=== PATIENT | female | born 1990 | race Caucasian/White ===

== ENCOUNTER 2021-10-06 16:40 | Emergency (ER) | payer BC, SELFPAY ==
--- NOTE | 2021-10-06 16:54 | CRLHL7_ITS ---
For Patients: As a result of the Century Cures Act, medical imaging exams and procedure reports are released immediately into your electronic medical record. You may view this report before your referring provider. If you have questions, please contact your health care provider. INDICATION: 9 week miscarriage today. heavy bleeding. assess uterine contents TECHNIQUE: Ultrasound pelvis transabdominal to assess and visualize the uterus and endometrium. Real-time sonographic images with spectral color doppler imaging of the ovaries were obtained. COMPARISON: None. FINDINGS: Uterus: Indeterminate cystic structure in the endometrium, possible residual gestational sac measuring 17.9 mm, corresponding to estimated gestational age of 6 weeks 5 days. Endometrium: Heterogeneous, echogenic debris in the endometrium with minimal vascularity. Right ovary: Unremarkable. Small amount of free fluid adjacent to the right ovary. Left ovary: Not evaluated. Cul-de-sac: Small amount of free pelvic fluid. IMPRESSION: 1. Likely residual gestational sac in the endometrium, with estimated mean gestational sac diameter of 17.9 mm. No pole or yolk sac identified. 2. Echogenic debris with mild vascularity in the endometrium, which may represent blood products and associated gestational sac. 3. No adnexal mass or complex structures identified with minimal degree of free pelvic fluid. Recommend close clinical follow-up and correlation with beta HCG levels. Dictated by Miguel Ángel Doan MD @ 10/06/2021 6:43:24 PM Dictated by: Miguel Ángel Daon MD @ 10/06/2021 18:43:31 (Electronically Signed)
[2021-10-06 16:59] VITALS: BP 118/91; PULSE 93; RESP 18; TEMP 37.2; O2SAT 98; BMI 23.6
--- NOTE | 2021-10-06 17:30 | ED.NURSE ---
Patient up to bathroom to change pad. Saturated pad with copious amount of dark red blood was removed. Patient reports soaking this pad in one hour. Reports intermittent cramping no lightheadedness.
[2021-10-06 18:03] VITALS: BP 96/80; PULSE 77; RESP 14; O2SAT 98
[2021-10-06] MEDS: 0.9 % SODIUM CHLORIDE 1000 ml 1,000 ML IV (18:16)
[2021-10-06 18:17] LABS: Basophils Absolute Auto 0.02 K/uL (0.00-0.30); Basophils Percent Auto 0.2 % (0.0-3.0); Eosinophils Absolute Auto 0.17 K/uL (0.00-0.50); Eosinophils Percent Auto 2.1 % (0.0-7.0); Hematocrit 36.7 % (33.0-51.0); Hemoglobin* 12.5 gm/dL (12.0-16.0); Immature Granulocytes Abs Auto 0.06 K/uL (0.00-0.30); Lymphocytes Percent Auto 18.9 % (20-44); Mean Corpuscular HGB Conc 34 gm/dL (32-36); Mean Corpuscular Hemoglobin 28 pg (26-34); Mean Corpuscular Volume 83 fL (80-100); Monocytes Percent Auto 8.6 % (0.0-11.0); Neutrophils Absolute Auto 5.71 K/uL (1.7-7.0); Neutrophils Percent Auto 69.5 % (42.0-72.0); Platelet Count* 191 K/uL (140-440); Red Blood Count 4.43 m/uL (4.00-5.20); White Blood Count* 8.22 K/uL (4.50-11.00)
[2021-10-06 18:18] LABS: Slide Review Reflex No
--- NOTE | 2021-10-06 18:23 | ED.NURSE ---
Patient had home container with passed vaginal specimen. This was placed in sterile collection cup and brought to lab. Patient does not want sample returned to her.
--- NOTE | 2021-10-06 18:53 | ED_ITS ---
HPI - Female Genitourinary General Chief complaint: Vaginal Bleeding Stated complaint: Miscarriage Time Seen by Provider: 10/06/21 16:52 History of Present Illness HPI Narrative: Patient is 4 para 2 woman who is 9 weeks . She began passing blood and clots earlier today and actually passed what appears to be products of conception home. She comes in the emergency room with brisk vaginal bleeding. She has had no lightheadedness no chest pain no palpitations. Her bleeding stops for the most part during her time in the ER after passing a large clot. Not feeling well. Her hemoglobin is stable at 12.5. Quantitative hCG is pending her blood type is O-positive. Related Data Home Medications Medication Instructions Recorded Confirmed oseltamivir 75 mg capsule mg 10/06/21 Allergies Allergy/AdvReac Type Severity Reaction Status Date / Time No Known Drug Allergies Allergy Verified 10/06/21 16:58 Review of Systems Status of ROS: Reports: 10 or more systems reviewed and unremarkable except as noted in History and below PFSH PFS Social History Smoking Status: Never smoker Do you use any of these nicotine containing products: None Second hand tobacco smoke exposure: No How often do you have a drink containing alcohol: monthly or less How often do you have six or more drinks on one occasion: Never AUDIT-C Alcohol total score: 1 Non-prescribed substance use: denies use Exam Narrative: Exam Narrative: EXAM GENERAL: Patient appears comfortable and well. EYES: No scleral icterus. LYMPH: No supraclavicular or cervical lymphadenopathy. SKIN: Visible skin seen during exam normal or with benign process only. EXT: No dependent lower extremity pedal edema. HEART: Regular rate and rhythm with no murmurs, rubs, or gallops. LUNGS: Clear to auscultation bilaterally with no crackles or wheezes. ABD: Soft, non tender, non distended. PSYCH: Good eye contact, speech is not pressured. Const: Vital Signs, click to edit/add: Vital Signs - 24 hr 10/06/21 16:59 10/06/21 18:03 Temperature 99.0 F Pulse Rate [Left P ulse Oximeter] 93 77 Respiratory Rate 18 14 Blood Pressure [Le ft Upper Arm] 118/91 H 96/80 Pulse Oximetry 98 98 Course Course Hospital Course: Ultrasound of the pelvis transabdominal upon my review shows likely miscarriage in progress. No remaining viable tissue. Hemoglobin 12.5 Quantitative hCG pending. Consultations Consultation #1: I did speak with OBGYN initially and then after the ultrasound was back. They did instruct me that as long as patient is medically stable she can follow-up as an outpatient for repeat quantitative hCG and possible assessment of retained products. If she continues have bleeding or retained products she would recommend a D&C. Vital Signs Vital signs: Initial Vital Signs Temperature 99.0 F 10/06/21 16:59 Temperature Source Temporal Artery Scan 10/06/21 16:59 Pulse Rate 93 10/06/21 16:59 Respiratory Rate 18 10/06/21 16:59 Blood Pressure 118/91 H 10/06/21 16:59 Blood Pressure Mean 100 10/06/21 16:59 Blood Pressure Position Supine 10/06/21 16:59 Pulse Oximetry 98 10/06/21 16:59 Oxygen Delivery Method 10/06/21 16:59 Vital Signs Temperature 99.0 F 10/06/21 16:59 Pulse Rate 93 10/06/21 16:59 Respiratory Rate 18 10/06/21 16:59 Blood Pressure 118/91 H 10/06/21 16:59 Pulse Oximetry 98 10/06/21 16:59 Temperature 99.0 F 10/06/21 16:59 Pulse Rate 77 10/06/21 18:03 Respiratory Rate 14 10/06/21 18:03 Blood Pressure 96/80 10/06/21 18:03 Pulse Oximetry 98 10/06/21 18:03 MDM - Female Genitourinary Lab Data Labs: Lab Results 10/06/21 Range/Units 17:15 WBC 8.22 (4.50-11.00) K/uL RBC 4.43 (4.00-5.20) m/uL Hgb 12.5 (12.0-16.0) gm/dL Hct 36.7 (33.0-51.0) % MCV 83 (80-100) fL MCH 28 (26-34) pg MCHC 34 (32-36) gm/dL RDW Coeff of Yessica 13.0 (11.5-15.5) % Plt Count 191 (140-440) K/uL Neut % (Auto) 69.5 (42.0-72.0) % Lymph % (Auto) 18.9 L (20-44) % [place] % (Auto) 8.6 (0.0-11.0) % Eos % (Auto) 2.1 (0.0-7.0) % Baso % (Auto) 0.2 (0.0-3.0) % Neut # (Auto) 5.71 (1.7-7.0) K/uL Lymph # (Auto) 1.60 (0.90-2.90) K/uL [place] # (Auto) 0.70 (0.00-0.90) K/UL Eos # (Auto) 0.17 (0.00-0.50) K/uL Baso # (Auto) 0.02 (0.00-0.30) K/uL Abs Immat Gran (auto) 0.06 (0.00-0.30) K/uL Discharge Plan Discharge Clinical Impression: Incomplete miscarriage Patient Disposition: Home, Self-Care Condition: Stable Additional Instructions: Continue to monitor bleeding. Return if bleeding becomes more brisk. Follow-up with OBGYN later this week to discuss repeat quantitative hCG and possible D&C. Activity Level: No Restrictions Prescriptions: No Action oseltamivir 75 mg capsule 0RF Follow Up/Referrals: Min Beth MD [Primary Care Provider] - Stand Alone Forms: [employer] Info Instructions
[2021-10-06 19:24] VITALS: BP 98/72
== END 2021-10-06 19:42 | disposition home or self-care (01) ==
PROVIDERS: Emergency Provider Internal Medicine; PCP Family Medicine
DX: O03.4 Incomplete spontaneous abortion without complication (principal)
CPT/HCPCS: 36415; 76856; 84702; 85025; 88305; 99283; 99284; J7030

== ENCOUNTER 2021-10-26 15:57 | Outpatient (CLI) | payer BC, SELFPAY ==
[2021-10-26 21:50] LABS: HCG Quantitative* 20.44 mIU/mL
== END 2021-10-26 15:58 | disposition home or self-care (01) ==
LOC: LKVLAB 15:58
PROVIDERS: PCP Family Medicine; Visit Provider Obstetrics & Gynecology
DX: O03.9 Complete or unspecified spontaneous abortion without complication (principal)
CPT/HCPCS: 36415; 84702

== ENCOUNTER 2021-11-03 12:30 | Emergency (ER) | payer BC, SELFPAY ==
[2021-11-03 12:59] VITALS: BP 107/53; PULSE 80; TEMP 36.9; O2SAT 92; BMI 21.0
[2021-11-03 13:04] VITALS: BP 107/73; PULSE 77; TEMP 36.9; O2SAT 94; BMI 20.8
--- NOTE | 2021-11-03 14:17 | CRLHL7_ITS ---
For Patients: As a result of the Century Cures Act, medical imaging exams and procedure reports are released immediately into your electronic medical record. You may view this report before your referring provider. If you have questions, please contact your health care provider. INDICATION: MISCARRIAGE 10/06/21, HEAVY BLEEDING ? RETAINED PRODUCTS COMPARISON: 10/06/2021, 09/22/2021 TECHNIQUE: Real-time cheung-scale imaging of the pelvis was performed. FINDINGS: Previously noted intrauterine gestational sac is no longer present. Endometrium is thickened and heterogeneous measuring up to 2.3 cm with associated increased vascularity. Bilateral simple ovarian cysts are noted measuring 5.8 x 5.1 x 6.1 cm on the left and 4.8 x 2.7 x 4.0 cm on the right. No pelvic free fluid. IMPRESSION: Thickened, heterogeneous and hypervascular endometrium suggesting retained products of conception. Bilateral simple ovarian cysts. Dictated by Mike Saldaña MD @ 11/03/2021 3:19:31 PM (Electronically Signed)
--- NOTE | 2021-11-03 14:34 | ED_ITS ---
HPI - Female Genitourinary General Chief complaint: Vaginal Bleeding Stated complaint: Passed several clots following miscarriage Time Seen by Provider: 11/03/21 13:06 History of Present Illness HPI Narrative: 31y presents to the ED via POV approximately 1 month after miscarriage. Patient reports she has been following with her primary care and obstetric providers for post-miscarriage cares. Patient's beta hCG was noted to be 95 initially, followed by 20 approximately 1 week prior to presentation today, but she has not had a repeated this week as she has started to improve and only spot. She presented to the emergency department today with request of her obstetrics provider due to recurrence of bleeding with golfball to tennis ball size clots. The patient denies dizziness, shortness of breath, nausea, or vomiting. The patient reports some abdominal cramping persisting. The patient has taken Tylenol prior to arrival with minimal improvement in pain and discomfort. She denies fever, chills, or sweats. See nursing notes for additional details. Related Data Previous Rx's Medication Instructions Recorded medroxyprogesterone 10 mg tablet 10 mg PO DAILY #10 tabs 11/03/21 (Provera) Allergies Allergy/AdvReac Type Severity Reaction Status Date / Time No Known Drug Allergies Allergy Verified 11/03/21 13:10 Review of Systems Const: Denies: fever, chills, fatigue or malaise ENMT: Denies: vertigo Cardio: Denies: chest pain, palpitations or shortness of breath with exertion Resp: Denies: shortness of breath or cough GI: Reports: abdominal pain (cramping); Denies: nausea, vomiting, diarrhea or constipation : Reports: vaginal bleeding; Denies: painful urination or urinary frequency Neuro: Denies: numbness in extremities, weakness in extremities, lack of coordination, dizziness or vertigo Endo: Denies: fatigue [facility] Medical History (Updated 11/03/21 @ 15:55 by Jane Atkinson DO) Spontaneous miscarriage (10/05/21) Social History Smoking Status: Never smoker Do you use any of these nicotine containing products: None Second hand tobacco smoke exposure: No How often do you have a drink containing alcohol: monthly or less How often do you have six or more drinks on one occasion: Never AUDIT-C Alcohol total score: 1 Non-prescribed substance use: denies use service: No Exam Const: Vital Signs, click to edit/add: Vital Signs - 24 hr 11/03/21 12:59 11/03/21 13:04 Temperature 98.4 F 98.4 F Pulse Rate [Pulse Oximeter] 80 77 Blood Pressure [Ri ght Upper Arm] 107/53 L 107/73 Pulse Oximetry 92 94 Oxygen Delivery Me thod Room Air Room Air Documenting provider has reviewed patient's vital signs: yes Common normals: no apparent distress, oriented x3, alert and well nourished General appearance: cooperative, comfortable and well developed Orientation/consciousness: Yes awake, Yes oriented to person, Yes oriented to place and Yes oriented to time HENMT: Common normals: normocephalic and head/scalp atraumatic Head and scalp: normocephalic and atraumatic Eye: Common normals: PERRL and EOMs intact bilaterally Pupil: PERRL Resp: Common normals: normal respiratory effort, no retractions, no use of accessory muscles and clear to auscultation bilaterally Auscultation: clear to auscultation bilaterally Cardio: Common normals: regular rate, regular rhythm, S1 normal heart sound, S2 normal heart sound, no gallops, no clicks and no murmurs Rate: regular rate Rhythm: regular rhythm Heart sounds: S1 normal and S2 normal GI: Common normals: Normal to inspection, nondistended, normoactive bowel sounds present and soft to palpation Palpation: soft and tender (generalized, but not painful) Extremity: Common normals: full ROM and no clubbing, cyanosis or edema Neuro: Common normals: oriented x3 Sensorium/orientation: awake, alert, oriented to person, oriented to place and oriented to time Psych: Common normals: mental status grossly normal, thought process normal, cooperative and affect normal Thought process: normal thought process Skin: Common normals: no rashes or lesions noted General skin exam: no rashes or lesions noted Course Course Hospital Course: Ivory presented with acute concerns of continued bleeding after recent spontaneous miscarriage. The patient's labs and imaging were discussed with consulting american sign language interpreter and patient. The patient was encouraged to take medications as directed and follow-up with american sign language interpreter in 7-10 days. Reevaluation(s) Reevaluation #1: Patient reports no significant change in symptoms while in ED. Patient's vital signs have remained stable. The results were discussed, and the patient verbalized understanding. Reasons for follow-up or return were discussed. Time: 15:31 Consultations Consultation #1: Dr Shea, obstetrics Time: 15:31 Vital Signs Vital signs: Initial Vital Signs Temperature 98.4 F 11/03/21 12:59 Temperature Source Tympanic 11/03/21 12:59 Pulse Rate 80 11/03/21 12:59 Pulse Rhythm 11/03/21 12:59 Blood Pressure 107/53 L 11/03/21 12:59 Blood Pressure Mean 71 11/03/21 12:59 Pulse Oximetry 92 11/03/21 12:59 Oxygen Delivery Method 11/03/21 12:59 Vital Signs Temperature 98.4 F 11/03/21 12:59 Pulse Rate 80 11/03/21 12:59 Blood Pressure 107/53 L 11/03/21 12:59 Pulse Oximetry 92 11/03/21 12:59 Oxygen Delivery Method 11/03/21 12:59 Temperature 98.4 F 11/03/21 13:04 Pulse Rate 77 11/03/21 13:04 Blood Pressure 107/73 11/03/21 13:04 Pulse Oximetry 94 11/03/21 13:04 Oxygen Delivery Method 11/03/21 13:04 MDM - Female Genitourinary MDM Narrative Medical decision making narrative: Differential diagnosis included but not limited to intrauterine , ectopic , and spontaneous . In addition discussed the important life-threatening complications of hypovolemia secondary to bleeding. Medical Records Attestation: I reviewed the patient's medical records. Lab Data Attestation: I reviewed the patient's lab results. Labs: Lab Results 11/03/21 11/03/21 11/03/21 Range/Units 14:29 14:29 14:29 WBC 5.86 (4.50-11.00) K/uL RBC 4.48 (4.00-5.20) m/uL Hgb 12.2 (12.0-16.0) gm/dL Hct 37.4 (33.0-51.0) % MCV 84 (80-100) fL MCH 27 (26-34) pg MCHC 33 (32-36) gm/dL RDW Coeff of Yessica 13.2 (11.5-15.5) % Plt Count 229 (140-440) K/uL Neut % (Auto) 57.2 (42.0-72.0) % Lymph % (Auto) 31.7 (20-44) % [place] % (Auto) 7.3 (0.0-11.0) % Eos % (Auto) 3.6 (0.0-7.0) % Baso % (Auto) 0.2 (0.0-3.0) % Neut # (Auto) 3.35 (1.7-7.0) K/uL Lymph # (Auto) 1.86 (0.90-2.90) K/uL [place] # (Auto) 0.40 (0.00-0.90) K/UL Eos # (Auto) 0.21 (0.00-0.50) K/uL Baso # (Auto) 0.01 (0.00-0.30) K/uL Abs Immat Gran (auto) 0.00 (0.00-0.30) K/uL Sodium 139 (135-149) mmol/L Potassium 3.8 (3.6-5.1) mmol/L Chloride 106 (96-114) mmol/L Carbon Dioxide 25 (20-32) mmol/L BUN 13 (5-24) mg/dL Creatinine 0.7 (0.5-1.5) mg/dL Estimated Creat Clear 106.58 Estimated GFR 118 ml/min Glucose 89 (60-115) mg/dL Calcium 9.0 (8.4-10.6) mg/dL Total Bilirubin 0.8 (0.1-1.5) mg/dL AST 22 (12-35) U/L ALT 16 (4-35) U/L Alkaline Phosphatase 56 (40-150) U/L Total Protein 7.9 (6.0-8.3) g/dL Albumin 4.6 (3.3-5.0) g/dL HCG, Quant 6.80 Cancelled mIU/mL Imaging Data US TV: Attestation: I have reviewed the pertinent imaging results. Radiologist's impression: Previously noted intrauterine gestational sac is no longer present. Endometrium is thickened and heterogeneous measuring up to 2.3 cm with associated increased vascularity. Bilateral simple ovarian cysts are noted measuring 5.8 x 5.1 x 6.1 cm on the left and 4.8 x 2.7 x 4.0 cm on the right. No pelvic free fluid. IMPRESSION: Thickened, heterogeneous and hypervascular endometrium suggesting retained products of conception. Bilateral simple ovarian cysts. Discharge Plan Discharge Clinical Impression: Dysfunctional uterine bleeding, Spontaneous miscarriage Patient Disposition: Home, Self-Care Condition: Stable Instructions: Abnormal (Dysfunctional) Uterine Bleeding (ED) Additional Instructions: Thank you for choosing [facility] for your care today. Take medications as directed to manage your current, spontaneous . Follow-up with your obstetrics provider in 7-10 days. Consider waiting until your normal menses cycle prior to attempting to retry for future pregnancies. Your care today was on an emergency basis and is not intended to be a substitute for on- going care with your primary physician. I recommend calling primary care for follow-up in the next 3-5 days for follow-up as needed and to review any labs, testing, or imaging you have had in the Emergency Department. If new or worsening symptoms develop or you have any concerns in the meantime, please call your primary care clinic or return to the ER for re-evaluation. Activity Level: Activity as Tolerated Discharge Diet: Regular Prescriptions: New medroxyprogesterone [Provera] 10 mg tablet 10 mg PO DAILY Qty: 10 0RF Follow Up/Referrals: Min Beth MD [Primary Care Provider] - Stand Alone Forms: [employer] Info Instructions
[2021-11-03 14:39] LABS: Basophils Absolute Auto 0.01 K/uL (0.00-0.30); Basophils Percent Auto 0.2 % (0.0-3.0); Eosinophils Absolute Auto 0.21 K/uL (0.00-0.50); Eosinophils Percent Auto 3.6 % (0.0-7.0); Hematocrit 37.4 % (33.0-51.0); Hemoglobin* 12.2 gm/dL (12.0-16.0); Lymphocytes Absolute Auto 1.86 K/uL (0.90-2.90); Lymphocytes Percent Auto 31.7 % (20-44); Mean Corpuscular HGB Conc 33 gm/dL (32-36); Mean Corpuscular Hemoglobin 27 pg (26-34); Mean Corpuscular Volume 84 fL (80-100); Monocytes Percent Auto 7.3 % (0.0-11.0); Neutrophils Absolute Auto 3.35 K/uL (1.7-7.0); Neutrophils Percent Auto 57.2 % (42.0-72.0); Platelet Count* 229 K/uL (140-440); RDW Coefficient of Variation % 13.2 % (11.5-15.5); Red Blood Count 4.48 m/uL (4.00-5.20); White Blood Count* 5.86 K/uL (4.50-11.00)
[2021-11-03 15:00] LABS: Albumin* 4.6 g/dL (3.3-5.0)
[2021-11-03 15:01] LABS: Chloride* 106 mmol/L (96-114); Potassium* 3.8 mmol/L (3.6-5.1); Sodium* 139 mmol/L (135-149)
[2021-11-03 15:03] LABS: Aspartate Amino Transferase* 22 U/L (12-35); Bilirubin Total* 0.8 mg/dL (0.1-1.5); Carbon Dioxide* 25 mmol/L (20-32); Creatinine* 0.7 mg/dL (0.5-1.5); Est. Creatinine Clearance* 106.58; Estimated Glomerular Filt Rate 118 ml/min; Total Protein* 7.9 g/dL (6.0-8.3)
[2021-11-03 15:04] LABS: Alanine Aminotransferase* 16 U/L (4-35); Alkaline Phosphatase* 56 U/L (40-150); Blood Urea Nitrogen* 13 mg/dL (5-24); Glucose* 89 mg/dL (60-115)
[2021-11-03 21:55] LABS: Slide Review Reflex No
== END 2021-11-03 16:08 | disposition home or self-care (01) ==
PROVIDERS: Emergency Provider Family Medicine; PCP Family Medicine
DX: N93.9 Abnormal uterine and vaginal bleeding, unspecified (principal); O03.1 Delayed or excessive hemorrhage following incomplete spontaneous abortion
CPT/HCPCS: 36415; 76830; 80053; 84702; 85025; 93976; 99283; 99284

== ENCOUNTER 2021-11-19 07:45 | Day surgery (SDC) | payer BC, SELFPAY ==
[2021-11-19] MEDS: DOXYCYCLINE HYCLATE 100 MG CAPSULE 200 MG PO (08:08)
[2021-11-19] MEDS: LACTATED RINGERS 1000 ML 1,000 ML 35 ML IV (08:08)
[2021-11-19 08:17] VITALS: BP 99/74; PULSE 69; RESP 16; TEMP 36.8; O2SAT 100
[2021-11-19 08:20] VITALS: BMI 24.1
[2021-11-19 08:39] LABS: Hemoglobin* 12.2 gm/dL (12.0-16.0)
[2021-11-19] MEDS: VASOPRESSIN 20 UNIT/ML INJ INJECTION ×2 (10:24→10:38)
[2021-11-19] MEDS: SILVER NITRATE APPLICATOR 1 EACH STICK..EA. TOPICAL (10:37)
[2021-11-19 10:46] VITALS: BP 118/90; PULSE 62; RESP 12; TEMP 36.4; O2SAT 99
--- NOTE | 2021-11-19 10:48 | W.ANESCHARGE ---
Anesthesia Charges Start Date/Time Anesthesia Start Date: 11/19/21 Anesthesia Start Time: 09:58 Stop Date/Time Anesthesia Stop Date: 11/19/21 Anesthesia Stop Time: 10:48 Summary Emergency: No
[2021-11-19 11:00] VITALS: BP 110/82; PULSE 63; RESP 14; O2SAT 99
--- NOTE | 2021-11-19 11:07 | W.PM.GYNPROC ---
Procedure Note Date Seen: 11/19/21 Procedure Details: PREOPERATIVE DIAGNOSIS: Heavy uterine bleeding after spontaneous miscarriage, suspected retained products of conception POSTOPERATIVE DIAGNOSIS: Retained products of conception PROCEDURE: Hysteroscopy, dilation and curettage SURGEON: Rosey Shea MD ANESTHESIA: Monitored anesthesia care IV FLUIDS: 800 mL crystalloid EBL: <5 SALINE DEFICIT: 745 mL FINDINGS: 1. On exam under anesthesia, bimanual exam revealed a mobile, anteverted uterus that was approximately 8 week size. There was a left adnexal mass that seemed to be attached to the right cornual region on bimanual exam. There was a mobile left adnexal mass, palpable through the vaginal fornix. 2. But hysteroscopy, survey of the endometrial cavity revealed intracavitary tissue surrounded by blood clot along the posterior uterine wall. There was asymmetrically thickened endometrium along the left cornual region. The endometrial cavity was normal in shape, and bilateral tubal ostia were normal appearance. COMPLICATIONS: None PROCEDURE IN DETAIL: Patient was taken to the operating room with IV running. She was positioned in dorsal lithotomy position with her legs fully supported in Yellofin stirrups. Monitored anesthesia care was administered. She was prepped and draped in the usual sterile fashion. Exam under anesthesia was performed for the above-noted findings. Speculum was inserted. Cervix visualized and grasped along the anterior lip with a single-tooth tenaculum. Cervix was injected with 10 mL of dilute vasopressin. Cervix was serially dilated to accommodate the larger TRUCLEAR hysteroscope. This was assembled with saline inflow and outflow in place. The line was flushed of bubbles. The hysteroscope was advanced through the cervix into the endometrial cavity for the above noted findings. The soft tissue morcellator was then inserted through the operating channel. Window lock was performed. Under direct visualization, the endometrial cavity was circumferentially curetted with the tissue morcellator. The hysteroscope and morcellator were then removed from the uterus. Tenaculum was removed from the anterior lip of cervix. Hemostasis was achieved with silver nitrate. Patient tolerated procedure well. She was taken to recovery area in stable condition.
[2021-11-19 11:15] VITALS: BP 110/84; PULSE 67; RESP 14; O2SAT 100
[2021-11-19 11:30] VITALS: BP 113/80; PULSE 63; RESP 14; O2SAT 100
--- NOTE | 2021-11-19 11:42 | SUR.PREOP ---
ANESTHESIA GAVE TORADOL IN OR.
== END 2021-11-19 11:35 | disposition home or self-care (01) ==
PROVIDERS: PCP Family Medicine; Visit Provider Obstetrics & Gynecology
PROC: 0UDB8ZZ Extraction of Endometrium, Via Natural or Artificial Opening Endoscopic (ICD-10-PCS; CPT 58558; principal; 2021-11-19 09:00)
DX: O03.1 Delayed or excessive hemorrhage following incomplete spontaneous abortion (principal)
CPT/HCPCS: 59812; 00952; 36415; 85018; 86850; 86900; 86901; 88305; A9270; J1100; J1885; J2250; J2405; J2704; J3010; J7120

== ENCOUNTER 2021-12-15 08:11 | Outpatient (CLI) | payer BC, SELFPAY ==
--- NOTE | 2021-12-15 08:15 | CRLHL7_ITS ---
For Patients: As a result of the Century Cures Act, medical imaging exams and procedure reports are released immediately into your electronic medical record. You may view this report before your referring provider. If you have questions, please contact your health care provider. INDICATION: f/u RPOC, ovarian cysts COMPARISON: 11/03/2021, 10/06/2021 TECHNIQUE: 2D cheung scale and color Doppler images were acquired of the pelvis using a transabdominal and transvaginal approach. FINDINGS: Sonographic images demonstrate a normal size and smooth outer contour of the uterus. Uterus measures 8.9 cm in length by 4.5 cm in AP diameter by 5.4 cm in transverse dimension. The myometrium has a normal uniform echotexture. The endometrial lining appears normal and measures 6 mm in composite thickness. The right ovary measures 3.8 x 2.1 x 3.3 cm in size and the left ovary measures 3.1 x 1.4 x 1.2 cm. Dominant follicle right ovary measuring 1.5 cm. The ovaries demonstrate normal arterial and venous blood flow on color Doppler analysis. There are no suspicious fluid collections within the cul-de-sac. IMPRESSION: Improved appearance of the endometrium compared to the most recent exam and now measures 6 millimeters. Interval resolution of previously noted ovarian cysts. Incidental dominant follicle right ovary. Ovarian volumes are not enlarged. Dictated by Mike Saldaña MD @ 12/15/2021 9:33:55 AM (Electronically Signed)
== END 2021-12-15 08:12 | disposition home or self-care (01) ==
LOC: US 08:11
PROVIDERS: PCP Family Medicine; Visit Provider Obstetrics & Gynecology
DX: N93.8 Other specified abnormal uterine and vaginal bleeding (principal)
CPT/HCPCS: 76830; 76856

== ENCOUNTER 2022-01-28 10:37 | Outpatient (CLI) | payer BC, SELFPAY ==
[2022-01-29 13:36] LABS: Rheumatoid Factor 11 IU/mL (0-14)
== END 2022-01-28 10:38 | disposition home or self-care (01) ==
LOC: NFLDREF 10:41
PROVIDERS: PCP Family Medicine; Visit Provider Family Medicine
DX: M79.641 Pain in right hand (principal); M79.642 Pain in left hand
CPT/HCPCS: 86200; 86431

== ENCOUNTER 2022-12-08 19:17 | Emergency (ER) | payer BC, SELFPAY ==
[2022-12-08 19:29] VITALS: BP 117/74; PULSE 78; RESP 16; TEMP 36.6; O2SAT 98; BMI 25.1
--- NOTE | 2022-12-08 19:54 | ED.GENADULT ---
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 Irrigated with saline. Took ibuprofen 32-year-old woman presenting to the emergency department Related Data Home Medications Medication Instructions Recorded Confirmed calcium carbonate 600 mg calcium 600 mg PO QDAY 11/18/21 03/01/22 (1,500 mg) tablet (Calcium) cetirizine 10 mg tablet 10 mg PO DAILY 11/18/21 03/01/22 cholecalciferol (vitamin D3) 50 2,000 unit PO DAILY 11/18/21 03/01/22 mcg (2,000 unit) tablet docosahexaenoic acid 200 mg mg PO .QD 11/18/21 03/01/22 capsule (Algal [place]-3 DHA) fluticasone propionate 50 1 spray intranasal DAILY 11/18/21 03/01/22 mcg/actuation nasal spray,suspension prenat.vits,leslie,bls-ymtl-lhofd 1 tab PO QDAY 11/18/21 03/01/22 psyllium husk 0.4 gram capsule 0.4 g PO QDAY 11/18/21 03/01/22 (Fiber (psyllium husk)) Allergies Allergy/AdvReac Type Severity Reaction Status Date / Time No Known Drug Allergies Allergy Verified 03/01/22 18:34 [facility] Medical History (Updated 03/01/22 @ 20:51 by Nisha Mccray, POLYSOMNOGRAPHY TECHNICIAN) Bilateral ovarian cysts ?N83.201 - Unspecified ovarian cyst, right side (ICD-10) ?N83.202 - Unspecified ovarian cyst, left side (ICD-10) Abnormal uterine bleeding ?N93.9 - Abnormal uterine and vaginal bleeding, unspecified (ICD-10) History of COVID-19 ?Z86.16 - Personal history of COVID-19 (ICD-10) Vaginal delivery ?O80 - Encounter for full-term uncomplicated delivery (ICD-10) Mixed anxiety depressive disorder ?F41.8 - Other specified anxiety disorders (ICD-10) History of abnormal cervical Papanicolaou smear (03/2009) ?Z87.42 - Personal history of other diseases of the female genital tract (ICD-10) 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) Spontaneous miscarriage (10/05/21) ?O03.9 - Complete or unspecified spontaneous without complication (ICD-10) Surgical History (Updated 11/11/21 @ 13:37 by Farzad Byrd) History of third molar tooth extraction ?K08.409 - Partial loss of teeth, unspecified cause, unspecified class (ICD-10) Family History (Updated 11/18/21 @ 17:54 by Rosey Shea MD) Mother Anxiety disorder Cardiac arrhythmia Breast cancer, Onset Age: 56 Diabetes Father Depression Oral cancer Pancreatic cancer Sister Depression Social History (Updated 11/18/21 @ 17:55 by Rosey Shea MD) Narrative: She lives in [place] with her and 2 kids. 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 Smoking Status: Never smoker Do you use any of these nicotine containing products: None Second hand tobacco smoke exposure: No How often do you have a drink containing alcohol: monthly or less Alcohol type: beer How often do you have six or more drinks on one occasion: Never AUDIT-C Alcohol total score: 1 Non-prescribed substance use: denies use Caffeine: Yes (1 COFFEE PER DAY) Are you using contraception or practicing any form of control: No service: No Exam Const: Vital Signs, click to edit/add: Vital Signs - 24 hr 12/08/22 19:29 Temperature 97.9 F Pulse Rate [Right Pulse Oximeter] 78 Respiratory Rate 16 Blood Pressure [Ri ght Upper Arm] 117/74 Pulse Oximetry 98 Oxygen Delivery Me thod Room Air Course Vital Signs Vital signs: Initial Vital Signs Temperature 97.9 F 12/08/22 19:29 Temperature Source Temporal Artery Scan 12/08/22 19:29 Pulse Rate 78 12/08/22 19:29 Pulse Rhythm Regular 12/08/22 19:29 Respiratory Rate 16 12/08/22 19:29 Blood Pressure 117/74 12/08/22 19:29 Blood Pressure Mean 88 12/08/22 19:29 Blood Pressure Position Sitting 12/08/22 19:29 Pulse Oximetry 98 12/08/22 19:29 Oxygen Delivery Method Room Air 12/08/22 19:29 Vital Signs Temperature 97.9 F 12/08/22 19:29 Pulse Rate 78 12/08/22 19:29 Respiratory Rate 16 12/08/22 19:29 Blood Pressure 117/74 12/08/22 19:29 Pulse Oximetry 98 12/08/22 19:29 Oxygen Delivery Method Room Air 12/08/22 19:29 Temperature 97.9 F 12/08/22 19:29 Pulse Rate 78 12/08/22 19:29 Respiratory Rate 16 12/08/22 19:29 Blood Pressure 117/74 12/08/22 19:29 Pulse Oximetry 98 12/08/22 19:29 Oxygen Delivery Method Room Air 12/08/22 19:29 Discharge Plan Discharge Prescriptions: No Action cholecalciferol (vitamin D3) 50 mcg (2,000 unit) tablet 2,000 unit PO DAILY fluticasone propionate 50 mcg/actuation spray,suspension 1 spray intranasal DAILY cetirizine 10 mg tablet 10 mg PO DAILY psyllium husk [Fiber (psyllium husk)] 0.4 gram capsule 0.4 g PO QDAY prenat.vits,leslie,tde-agwr-gfisy Tablet 1 tab PO QDAY Algal [place]-3 DHA 200 mg capsule PO .QD calcium carbonate [Calcium 600] 600 mg calcium (1,500 mg) tablet 600 mg PO QDAY Follow Up/Referrals: Min Beth MD [Primary Care Provider] -
--- NOTE | 2022-12-08 21:20 | ED_ITS ---
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 She has been soaking her thumb and when I go to assess she realizes that this is not as bad as she thought and is not sure that she actually needs to be evaluated or treated for this, ultimately preferring to manage this herself at home. I do manage to view her thumb. There is 1 cm intradermal angled laceration slight flap not actively bleeding. This is at the ulnar/medial side corner/distal great thumbnail. Related Data Home Medications Medication Instructions Recorded Confirmed calcium carbonate 600 mg calcium 600 mg PO QDAY 11/18/21 03/01/22 (1,500 mg) tablet (Calcium) cetirizine 10 mg tablet 10 mg PO DAILY 11/18/21 03/01/22 cholecalciferol (vitamin D3) 50 2,000 unit PO DAILY 11/18/21 03/01/22 mcg (2,000 unit) tablet docosahexaenoic acid 200 mg mg PO .QD 11/18/21 03/01/22 capsule (Algal [place]-3 DHA) fluticasone propionate 50 1 spray intranasal DAILY 11/18/21 03/01/22 mcg/actuation nasal spray,suspension prenat.vits,leslie,nwq-pthb-jcftd 1 tab PO QDAY 11/18/21 03/01/22 psyllium husk 0.4 gram capsule 0.4 g PO QDAY 11/18/21 03/01/22 (Fiber (psyllium husk)) Allergies Allergy/AdvReac Type Severity Reaction Status Date / Time No Known Drug Allergies Allergy Verified 03/01/22 18:34 [facility] Medical History (Updated 12/23/22 @ 00:00 by Background Daquinn) Bilateral ovarian cysts ?N83.201 - Unspecified ovarian cyst, right side (ICD-10) ?N83.202 - Unspecified ovarian cyst, left side (ICD-10) Abnormal uterine bleeding ?N93.9 - Abnormal uterine and vaginal bleeding, unspecified (ICD-10) History of COVID-19 ?Z86.16 - Personal history of COVID-19 (ICD-10) Vaginal delivery ?O80 - Encounter for full-term uncomplicated delivery (ICD-10) Mixed anxiety depressive disorder ?F41.8 - Other specified anxiety disorders (ICD-10) History of abnormal cervical Papanicolaou smear (03/2009) ?Z87.42 - Personal history of other diseases of the female genital tract (ICD-10) 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) Spontaneous miscarriage (10/05/21) ?O03.9 - Complete or unspecified spontaneous without complication (ICD-10) Surgical History (Updated 11/11/21 @ 13:37 by Farzad Byrd) History of third molar tooth extraction ?K08.409 - Partial loss of teeth, unspecified cause, unspecified class (ICD- 10) Family History (Updated 11/18/21 @ 17:54 by Rosey Shea MD) Mother Anxiety disorder Cardiac arrhythmia Breast cancer, Onset Age: 56 Diabetes Father Depression Oral cancer Pancreatic cancer Sister Depression Social History (Updated 11/18/21 @ 17:55 by Rosey Shea MD) Narrative: She lives in [place] with her and 2 kids. 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 Smoking Status: Never smoker Do you use any of these nicotine containing products: None Second hand tobacco smoke exposure: No How often do you have a drink containing alcohol: monthly or less Alcohol type: beer How often do you have six or more drinks on one occasion: Never AUDIT-C Alcohol total score: 1 Non-prescribed substance use: denies use Caffeine: Yes (1 COFFEE PER DAY) Are you using contraception or practicing any form of control: No service: No Exam Const: Vital Signs, click to edit/add: Vital Signs - 24 hr 12/08/22 19:29 Temperature 97.9 F Pulse Rate [Right Pulse Oximeter] 78 Respiratory Rate 16 Blood Pressure [Ri ght Upper Arm] 117/74 Pulse Oximetry 98 Oxygen Delivery Me thod Room Air Course Vital Signs Vital signs: Initial Vital Signs Temperature 97.9 F 12/08/22 19:29 Temperature Source Temporal Artery Scan 12/08/22 19:29 Pulse Rate 78 12/08/22 19:29 Pulse Rhythm Regular 12/08/22 19:29 Respiratory Rate 16 12/08/22 19:29 Blood Pressure 117/74 12/08/22 19:29 Blood Pressure Mean 88 12/08/22 19:29 Blood Pressure Position Sitting 12/08/22 19:29 Pulse Oximetry 98 12/08/22 19:29 Oxygen Delivery Method Room Air 12/08/22 19:29 Vital Signs Temperature 97.9 F 12/08/22 19:29 Pulse Rate 78 12/08/22 19:29 Respiratory Rate 16 12/08/22 19:29 Blood Pressure 117/74 12/08/22 19:29 Pulse Oximetry 98 12/08/22 19:29 Oxygen Delivery Method Room Air 12/08/22 19:29 Temperature 97.9 F 12/08/22 19:29 Pulse Rate 78 12/08/22 19:29 Respiratory Rate 16 12/08/22 19:29 Blood Pressure 117/74 12/08/22 19:29 Pulse Oximetry 98 12/08/22 19:29 Oxygen Delivery Method Room Air 12/08/22 19:29 Discharge Plan Discharge Patient Disposition: Left Without Being Seen
== END 2022-12-08 20:30 | disposition left against medical advice (07) ==
PROVIDERS: Emergency Provider Family Medicine; PCP Family Medicine
DX: Z53.21 Procedure and treatment not carried out due to patient leaving prior to being seen by health care provider (principal)
CPT/HCPCS: 99281

== ENCOUNTER 2023-01-25 13:19 | Outpatient (CLI) | payer BC, SELFPAY | END 2023-01-25 13:20 | disposition home or self-care (01) | PROVIDERS: PCP Family Medicine; Visit Provider Family Medicine | DX: Z01.419 Encounter for gynecological examination (general) (routine) without abnormal findings (principal); E78.5 Hyperlipidemia, unspecified; R53.83 Other fatigue; R73.9 Hyperglycemia, unspecified | CPT/HCPCS: 80053; 80061; 84443 ==

== ENCOUNTER 2024-07-24 21:16 | Emergency (ER) | payer OTHER, SELFPAY ==
--- OUTSIDE RECORDS SUMMARY | 2024-07-24 21:18 | XMS_ITS | Data Portability ---
Author Organization [place] - [facility], [employer] - [employer] [facility] Address [address] [place] [address] Assessment Encounter Date Assessment Date Assessment LastModified by Organization Details LastModified Time 04/05/2024 04/05/2024 ASSESSMENT: Patient is a good candidate for conservative care and the prognosis is for a favorable outcome that achieves the patients' goals. We discussed etiology, activity modifications, home care, and other treatment options. Initially, it is recommended that the patient receive in-office treatment 1 times per week for 8 weeks at which time a re-evaluation will be performed to determine an appropriate change in plan. Initially, treatment will focus on joint manipulation to restore range of motion and reduce pain. We will slowly progress to therapeutic exercises and activities to improve function, strength, and stability may also be used as warranted. If the patient is not responding as expected, more invasive procedures will be discussed along with a referral. All considerations above were discussed with the patient and questions answered to satisfaction. If the patient should have any additional questions, or should the condition evolve or worsen, the patient should not hesitate to contact our office. jagdeep Not available 04/10/2024 10:48:26 Plan of Treatment Reminders Order Date Submit Date Provider Last Modified By Organization Details Last Modified Time Details Appointments DC Treatment 2024 04:00P M El Kent DC Not available Not available Not available Lab None recorded. Referral None recorded. Procedures None recorded. Surgeries None recorded. Imaging None recorded. Medication Orders None recorded. Patient TargetsNo targets recorded. Patient InstructionsNo instructions recorded. Reason for Referral None Reported. Problems Name Problem SNOMED Code Status Onset Date Resolution Date Notes Provider Name and Address Organization Details Recorded Time Lumbar segmental dysfunction 279324480 Active 2024 Isidoro Delgado DC [address], [place], [address] , [facility] 5 10:48:26 Thoracic segmental dysfunction 095768426 Active 2024 Not Available [facility] 11:25:48 Neck pain 06913546 Active 2024 Not Available [facility] 5 11:25:48 Lesion of lumbar spine 501791347 Active 2024 Not Available [facility] 11:25:48 Cervical segmental dysfunction 472840301 Active 2024 Not Available [facility] 11:25:48 Problem Notes None recorded. Procedures Surgical History Date Name Laterality Status Provider Name and Address Organization Details Recorded Time 65252: Spinal manipulation , 3 to 4 regions completed Isidoro Delgado DC [address], [place], [address], [facility] 04/10/2024 10:48:46 Imaging Results None recorded. Procedure Notes None recorded. Medical Equipment None Reported. Vitals None Recorded Social History None recorded. Functional Status None recorded. Mental Status None recorded. Family History Nothing Reported. Medical History No medical history recorded. Gynecological HistoryNo gynecological history recorded. Obstetrics History GPAL:G 0 P 0 0 0 0 Past Encounters Encounter ID Performer Location Encounter Start Date Encounter Closed Date Diagnosis/Indication Diagnosis SNOMED-CT Code Diagnosis ICD10 Code Diagnosis Note [id number] Isidoro Delgado DC [facility] [address] [place] [address] 04/05/2024 18:19:07 04/10/2024 11:28:25 Lesion of lumbar spine 535456323 M99.01 Neck pain 70613373 M54.2 Thoracic s egmental dysfunction 136058447 M99.02 Lumbar seg mental dysfunction 372446594 M99.03 Cervical s egmental dysfunction 274817238 M99.01 Health Concerns Section Related Observation LastModified by Organization Detai ls LastModified Time None Recorded Concern Status LastModified by Organization Details LastModified Time None Recorded Advance Directives Directive None Recorded Payers Encounter Date Sequence Insurance Name Policy Number Policy Bond Covered Member ID Bond Member ID Guarantor Name 04/05/2024 1 *SELF PAY* Malika Schaffer Notes Date Note Type Note Provider Name and Address Organization Details Recorded Time 04/05/2024 text/html HPI - Cervical SpineReported bypatient.Location: left Quality:aching Severity:moderate Duration:2 weeks Timing:gradual Alleviating Factors:ice Aggravating Factors:sitting Associated Symptoms:no numbness/tingling Isidoro Delgado, JESSE [address], [place], [address], [facility] 04/10/2024 10:49:09 OBGyn Episode No OBEpisode recorded.
--- OUTSIDE RECORDS SUMMARY | 2024-07-24 21:18 | XMS_ITS | Clinical Summary ---
Author Organization [place] Address [address] [place] [address]. [place] [address] Care Team Providers Care Public Transit Trolley Driver Name Role Phone Elli Maxwell PA-C Primary Care Pr ovider Allergies Active Allergy Reactions Criticality Noted Date Comments Seasonal Allergies 11/16/2018 Medications loratadine (CLARITIN) 10 MG tablet Take 10 mg by mouth daily Active fluticasone (FLONASE) 50 MCG/ACT nasal sprayIndications :Seasonal allergic rhinitis, unspecified trigger [place] 1 spray into both nostrils daily 16 g 0 Active Active Problems No known active problems Immunizations Name Administration Dates Next Due Influenza Vaccine IM Ages 6-35 Months 4 Valent ( PF) 12/24/2019 TDAP Vaccine (Adacel) 09/09/2017 Family History Medical History Relation Comments Cancer Father Diabetes Mother Heart block Mother Relation Status Comments Father Alive Mother Alive Social History Tobacco Use Types Packs/Day Years Used Date Smoking Tobacco: Never Smokeless Tobacco: Never Alcohol Use Standard Drinks/Week Comments Not Currently 0 (1 standard drink = 0.6 oz pur e alcohol) AUDIT-C Answer Date Recorded Q1: How often do you have a drink containing alc ohol? Never 11/16/2018 Average Number of Drinks Not on file 019 Frequency of Binge Drinking Not on file 11/02 PHQ-2 Answer Date Recorded PHQ-2 Score 0 12/24/2019 Adolescent Education Answer Date Record ed Getting School Help Needed Not on file 12/24 Comments Unknown Sex and Gender Information Value Date Recorded Sex Assigned at Not on file Legal Sex Female 4:52 PM CDT Gender Identity Not on file Sexual Orientation Not on file Last Filed Vital Signs Vital Sign Reading Time Taken Comments Blood Pressure 110/78 12/24/2019 2:46 PM CDT Pulse 75 12/24/2019 2:46 PM CDT Temperature 36.8 C (98.3 F) 12/24/2019 2:46 PM CDT Respiratory Rate 14 06/09/2019 5:43 PM [employer]TONHOLE TACKER Oxygen Saturation 98% 12/24/2019 2:46 PM CDT Inhaled Oxygen Concentration - - Weight 77.1 kg (170 lb) 12/24/2019 2:46 PM CDT Height 171.5 cm (5' 7.5) 12/24/2019 2:46 PM CDT Body Mass Index 26.23 12/24/2019 2:46 PM CDT Plan of Treatment Not on file Care Teams Public Transit Trolley Driver Relationship Specialty Start Date End Date Elli Maxwell PA-C [id number] [place] [address] PCP - General Physician Biology Laboratory Assistant 10/16/18
[2024-07-24 21:34] VITALS: BP 131/92; PULSE 83; RESP 16; TEMP 37.6; O2SAT 99; BMI 22.1
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
[2024-07-24] MEDS: LORazepam 0.5 MG TABLET PO (22:24)
--- OUTSIDE RECORDS SUMMARY | 2024-07-24 22:43 | XMS_ITS | Clinical Summary ---
Author Organization [facility] Address [address] [place] [address]. 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
[2024-07-25 00:57] VITALS: BP 124/75; PULSE 79; RESP 16; TEMP 36.9; O2SAT 99
== END 2024-07-25 00:58 | disposition home or self-care (01) ==
PROVIDERS: Emergency Provider Family Medicine; PCP Family Medicine
DX: S06.0X0A Concussion without loss of consciousness, initial encounter (principal); V43.62XA Car passenger injured in collision with other type car in traffic accident, initial encounter; F41.9 Anxiety disorder, unspecified
CPT/HCPCS: 70450; 99284; A9270